=== PATIENT | female | born 1965 | race Caucasian/White ===

== ENCOUNTER → 2017-07-19 | Outpatient (CLI) | payer OTHER | LOC: BMCIMAGING 11:08 | PROVIDERS: ATTEND Podiatrist Foot & Ankle Surgery | DX: M77.42 Metatarsalgia, left foot (principal) ==

== ENCOUNTER → 2017-08-12 | Outpatient (CLI) | payer OTHER | LOC: FIMAGING 09:38 | PROVIDERS: ATTEND Internal Medicine | DX: Z12.31 Encounter for screening mammogram for malignant neoplasm of breast (principal) | CPT/HCPCS: G0202 ==

== ENCOUNTER → 2018-11-20 | Outpatient (CLI) | payer OTHER | LOC: FIMAGING 11:52 | PROVIDERS: ATTEND Internal Medicine | DX: Z12.31 Encounter for screening mammogram for malignant neoplasm of breast (principal) ==